=== PATIENT | male | born 1965 | race Caucasian/White ===

== ENCOUNTER → 2017-09-19 10:15 | Outpatient (CLI) | payer OTHER, SELFPAY ==
--- NOTE | 2017-09-19 10:22 | US_ITS ---
US breast RT complete Ordering Physician: Zack Thompson MD Patient Age: 52 years: Male HISTORY: ITS.REASON: RT BREAST MASS TECHNIQUE: Ultrasound right male breast along with adjacent soft tissues inferior to the breast. COMPARISON :No previous plain films nor recent CT of chest FINDINGS At 3:00 there is a 8 mm length 8 mm transverse, 4.5 mm AP ovoid hyperechoic area or nodule just beneath the skin. Most likely small lipoma At 6:00 mid-breast there is a 13 mm length 5 mm AP and 11 mm transverse similar elongated ovoid area just beneath the skin. Again favor most likely lipoma 11:00 there is a palpable area which corresponds with one of these vague ovoid nodules. Is only slightly more hypoechoic than adjacent subcutaneous fat. This area measures up to 1 cm length x 5.5 mm AP. Most likely lipoma. Inferior to the right breast there is smooth Ovoid mildly hyperechoic area just beneath the skin . With this area measuring up to 31 mm length length x 7 mm AP x 22 mm transverse. Nonspecific but I suspect given its slightly hyperechoic character again favor most likely benign lipoma. It is in these above areas should progress or become concern clinically, may want to consider further investigation with CT or ultrasound-guided biopsy IMPRESSION: . 3 Slight hypoechoic ovoid areas are seen area right breast, one at 3:00, another at 6:00, and a third is is a palpable area at 11:00.. These are most likely benign lipomas from ultrasound appearance There is also a slightly larger area just inferior to the breast measuring up to 3 cm length x 7 mm AP and most likely vague benign lipoma as well
== END ==
PROVIDERS: PCP Family Medicine; Visit Provider Family Medicine
DX: N63.0 Unspecified lump in unspecified breast (principal)
CPT/HCPCS: 76641

== ENCOUNTER 2022-12-12 13:10 | Emergency (ER) | payer SELFPAY ==
[2022-12-12] VITALS (11 sets, daily range): BP systolic 116–155; BP diastolic 57–83; PULSE 18–70; RESP 12–20; TEMP 36.8; O2SAT 93–97; BMI 33.0
--- NOTE | 2022-12-12 13:10 | ECG_ITS ---
APPROVED REPORT Exam: Resting ECG HR:71 bpm ECG Measurements Heart Rate 71 AXES [place] 159 P 37 QRSd 112 QRS -22 QT 361 T 22 QTc 384 Conclusion SINUS RHYTHM BORDERLINE LEFT AXIS DEVIATION [QRS AXIS < -20] INCOMPLETE RIGHT BUNDLE BRANCH BLOCK [90+ ms QRS DURATION, TERMINAL R IN V1/V2, 40+ ms S IN I/aVL/V4/V5/V6] NONSPECIFIC ST ELEVATION [0.05+ mV ST ELEVATION] BORDERLINE ECG UNCONFIRMED REPORT Electronically signed by : Zack Quiroz MD 12/12/2022 20:59:46
--- NOTE | 2022-12-12 13:21 | XR_ITS ---
FINAL REPORT TECHNIQUE: Chest PA & Lateral CLINICAL HISTORY: chest pain COMPARISON: None FINDINGS: 2 views of the chest were performed. The heart size is normal. The mediastinum is within normal limits. There is no acute cardiopulmonary process. There are no pleural effusions. There is no pneumothorax. The bony thorax appears intact. IMPRESSION: No acute cardiopulmonary process. Reviewed, Interpreted and Dictated by Jesús Lui MD Transcribed by Tess Villa Authenticated and [facility]
[2022-12-12 13:37] LABS: Alanine Aminotransferase 62 U/L (12-78); Albumin Level 4.4 g/dl (3.5-5.0); Albumin/Globulin Ratio 1.6 (1.1-1.8); Alkaline Phosphatase 87 U/L (38-126); Anion Gap 17.1 mEq/L (5-15); Aspartate Amino Transferase 59 U/L (17-59); Bilirubin,Total 0.5 mg/dl (0.2-1.3); Blood Urea Nitrogen 20 mg/dl (9-20); Calcium 8.7 mg/dl (8.4-10.2); Carbon Dioxide 24 mmol/L (22.0-30.0); Chloride 102 mmol/L (98-107); Creatinine Clearance Estimated 100 mL/min (50-200); Estimated Glomerular Filt Rate 62 ml/min (>60); GFR (African American) 76 ML/MIN (>60); Globulin 2.8 g/dL (1.3-3.2); Glucose 176 mg/dl (74-100); Potassium 4.1 mmoL/L (3.5-5.1); Sodium 139 mmol/L (136-145); Total Protein,Serum 7.2 g/dl (6.3-8.2)
[2022-12-12 13:38] LABS: Basophils # 0.1 K/mm3 (0-0.2); Basophils % 0.8 % (0.1-2.0); Eosinophils # 0.2 K/mm3 (0.0-0.4); Eosinophils % 2.8 % (0.1-12.0); Hematocrit 50.5 % (42.0-52.0); Hemoglobin 16.5 g/dL (14.1-18.0); Lymphocytes # 1.9 K/mm3 (0.7-4.5); Mean Corpuscular HGB Conc 32.6 g/dL (31.8-35.4); Mean Corpuscular Hemoglobin 28.2 pg (27.0-31.2); Mean Corpuscular Volume 86.6 fl (80-94); Mean Platelet Volume 7.4 fl (7.4-10.4); Monocytes # 0.4 K/mm3 (0.1-1.0); Monocytes % 6.3 % (1.7-9.3); Neutrophils # 3.8 K/mm3 (1.8-7.8); Neutrophils % 60.2 % (37.0-80.0); Platelet Count 224 K/mm3 (142-424); Red Blood Count 5.83 M/mm3 (4.60-6.20); Red Cell Distribution Width 14.5 % (11.5-17.5); White Blood Count 6.4 K/mm3 (4.8-10.8)
[2022-12-12 13:46] LABS: Activated Partial Thrombo Time 26.7 seconds (22.8-30.6)
[2022-12-12 13:50] LABS: NT Pro Brain Natriuretic Pep. < 20.0 pg/mL (0-125); Troponin I < 0.01 ng/ml (0.00-0.034)
--- NOTE | 2022-12-12 14:02 | PC.NURSE ---
Patient updated on cardiac work-up time frame. Spouse at bedside with patient. Both without concern or needs at this time. Awaiting attending to be at bedside.
--- NOTE | 2022-12-12 14:53 | PC.NURSE ---
lock rounding on pts
--- NOTE | 2022-12-12 14:56 | PC.NURSE ---
rounded on pt, no needs at this time
--- NOTE | 2022-12-12 15:18 | PC.NURSE ---
Patient updated on when we can draw his 2nd troponin. No new needs at this time
--- NOTE | 2022-12-12 15:18 | HMH.EDGENADL ---
Discharge Plan Disposition Patient Disposition: Home Health Service Condition: Good Chief Complaint: Chest Pain Prescriptions Prescriptions: No Action diazepam 10 mg Tablet 20 mg PO HS PRN (Reason: Anxiety) Referrals Follow up/Referrals: Provider,Referral, MD [Primary Care Provider] - See instructions Activity Restrictions/Add. Instructions Additional Instructions/Restrictions: Home medication as directed. Stress test as scheduled. PCP in 1 to 2 days. Return to the ER for worsening symptoms Clinical Impressions Clinical Impression: Atypical chest pain Discharge ED Provider: Vicente De La Cruz General Adult HPI General Chief complaint: Chest Pain Stated complaint: chest pain Time Seen by Provider: 12/12/22 13:15 Mode of Arrival: Ambulatory Source of Information: Patient Limitations: No Limitations Description of Symptoms (Recalled from ER Triage Doc. by RN): 57 M presents with exertional left sided chest pain that radiates to his left hand. Patient reports having chest pain on and off for a little while, but this AM when he woke up, it was worse. He was seen by his PCP where they completed an EKG, told him he had an old heart attack and sent him over to Dr. Bautista. The packaging machine operator's office would not see him because of his current chest pain and sent him to the ED. Patient has 0/10 pain as he sits currently. History of Present Illness HPI narrative: 57yo M presents the ER secondary to left-sided chest pain. Denies radiation through his left upper extremity but complains of pain in his left home and a tingling sensation in the left sole of his foot. Reports this has been intermittent for at least 3 weeks. No shortness of breath. No previous cardiac history. Not a smoker, not diabetic. No significant family history of heart disease. Patient presented for a stress test today complained of chest pain and was sent to the ER. Patient reports he was seen by his PCP 2 to 3 weeks ago and told he had either a blockage, a previous heart attack or heart disease. Related Data Home Medications Medication Instructions Recorded Confirmed diazepam 10 mg tablet 20 mg PO HS PRN Anxiety 12/12/22 12/12/22 Allergies Allergy/AdvReac Type Severity Reaction Status Date / Time Penicillin Allergy Intermediate Hives Uncoded 12/12/22 13:20 [facility] Disclaimer: The information contained in this section may have been updated after the patient was seen, as this information can be updated by other users. Medical History Anxiety Social History Smoking Status: Never smoker alcohol intake: never current occupational status: other Travel in the last 8 weeks: None ROS Obtained: Yes Systems reviewed as appropriate & no additional complaints except as documented Physical Exam General General appearance: alert and in no apparent distress Head Head exam: atraumatic Eye Eye exam: Present normal appearance Neck Neck exam: Present trachea midline Chest Chest inspection: Present normal inspection Respiratory Respiratory exam: Present normal lung sounds bilaterally; Absent respiratory distress Cardiovascular Cardiovascular exam: Present regular rate, normal rhythm and normal heart sounds Abdominal Exam Abdominal exam: Present soft, distention and normal bowel sounds Extremities Exam Extremities exam: Present normal inspection, full ROM and normal capillary refill; Absent tenderness or edema Neurological Exam Neurological exam: Present alert, oriented X3 and CN II-XII intact Psychiatric Psychiatric exam: Present normal affect Skin Skin exam: Present warm and dry Medical Decision Making Medical Records Medical records reviewed: Yes I reviewed the patient's medical records. John Inquiry Pt receiving controlled substance: No Vital Signs: 12/12/22 13:13 12/12/22 13:36 12/12/22 13:42 Temperature
--- NOTE | 2022-12-12 15:39 | PC.NURSE ---
Lab notified that Attending would like an early draw on Troponin
--- NOTE | 2022-12-12 15:45 | PC.NURSE ---
Troponin drawn by this RN. Sent to lab
--- NOTE | 2022-12-12 15:48 | PC.NURSE ---
marc calixto bs
[2022-12-12 16:22] LABS: Troponin I < 0.01 ng/ml (0.00-0.034)
== END 2022-12-12 16:44 | disposition home or self-care (01) ==
PROVIDERS: Emergency Provider Family Medicine
DX: R07.9 Chest pain, unspecified (principal); M79.642 Pain in left hand; R20.2 Paresthesia of skin; F41.9 Anxiety disorder, unspecified
CPT/HCPCS: 71046; 80053; 83880; 84484; 85025; 85730; 93005; 99285